=== PATIENT | male | born 2000 | race Caucasian/White ===

== ENCOUNTER 2022-07-16 13:44 | Emergency (ER) | payer OTHER ==
[2022-07-16] MEDS ORDERED: Ibuprofen 600 MG Tab PO ONE (15:32)
[2022-07-16] MEDS ORDERED: traMADol 50 MG Tab PO ONE (15:32)
== END 2022-07-16 17:00 | disposition home or self-care (01) ==
LOC: MW.ED 13:44 → EDBD 13:44 → MW.ED 17:00
DX: S93.401A Sprain of unspecified ligament of right ankle, initial encounter (principal); S83.91XA Sprain of unspecified site of right knee, initial encounter; X50.1XXA Overexertion from prolonged static or awkward postures, initial encounter; Y99.0 Civilian activity done for income or pay
CPT/HCPCS: 73562; 73610; 99284; A9270; 99283